=== PATIENT | male | born 1940 | race Caucasian/White ===

== ENCOUNTER → 2019-06-08 | Outpatient (CLI) | payer MEDICARE ==
[~2019-06-08] MED LIST: Aspir-Low81 MG PO; CO Q10100 MG PO; Glucosamine Ch1 EAC4 PO; LOVA40 PO; TAMS.4ER PO; VITAMIN D31000 UNIT PO
== END ==
LOC: PLD 11:19 → LAB SHORT 11:19
DX: D48.5 Neoplasm of uncertain behavior of skin (principal)
CPT/HCPCS: 88305

== ENCOUNTER → 2020-10-04 | Outpatient (CLI) | payer MEDICARE | END | disposition home or self-care (01) | LOC: LAB SHORT 07:47 → PLD 07:47 | DX: D48.5 Neoplasm of uncertain behavior of skin (principal) | CPT/HCPCS: 88305 ==

== ENCOUNTER → 2022-01-16 | Outpatient (CLI) | payer MEDICARE | END | disposition home or self-care (01) | LOC: LAB 19:03 → LAB SHORT 19:03 | DX: L97.411 Non-pressure chronic ulcer of right heel and midfoot limited to breakdown of skin (principal) | CPT/HCPCS: 87070; 87075; 87077; 87205 ==

== ENCOUNTER 2022-01-31 03:36 | Day surgery (SDC) | payer MEDICARE | END 2022-01-31 23:05 | disposition home or self-care (01) | LOC: WOUND 03:36 | DX: L89.893 Pressure ulcer of other site, stage 3 (principal); G60.9 Hereditary and idiopathic neuropathy, unspecified; I25.10 Atherosclerotic heart disease of native coronary artery without angina pectoris; Z87.891 Personal history of nicotine dependence | CPT/HCPCS: G0463 ==

== ENCOUNTER 2022-02-07 01:02 | Day surgery (SDC) | payer MEDICARE | END 2022-02-07 23:21 | disposition home or self-care (01) | LOC: WOUND 01:02 | DX: L89.893 Pressure ulcer of other site, stage 3 (principal); G60.9 Hereditary and idiopathic neuropathy, unspecified; I25.10 Atherosclerotic heart disease of native coronary artery without angina pectoris; Z85.118 Personal history of other malignant neoplasm of bronchus and lung | CPT/HCPCS: G0463 ==

== ENCOUNTER 2022-02-21 00:28 | Day surgery (SDC) | payer MEDICARE | END 2022-02-21 23:08 | disposition home or self-care (01) | LOC: WOUND 00:28 | DX: L89.893 Pressure ulcer of other site, stage 3 (principal); G60.9 Hereditary and idiopathic neuropathy, unspecified; M79.672 Pain in left foot; I25.10 Atherosclerotic heart disease of native coronary artery without angina pectoris | CPT/HCPCS: G0463 ==

== ENCOUNTER 2022-02-28 01:33 | Day surgery (SDC) | payer MEDICARE | END 2022-02-28 23:23 | disposition home or self-care (01) | LOC: WOUND 01:33 | DX: L89.893 Pressure ulcer of other site, stage 3 (principal); G60.9 Hereditary and idiopathic neuropathy, unspecified; I25.10 Atherosclerotic heart disease of native coronary artery without angina pectoris; Z85.118 Personal history of other malignant neoplasm of bronchus and lung | CPT/HCPCS: G0463 ==

== ENCOUNTER 2022-03-07 01:38 | Day surgery (SDC) | payer MEDICARE | END 2022-03-07 23:28 | disposition home or self-care (01) | LOC: WOUND 01:38 | DX: L89.893 Pressure ulcer of other site, stage 3 (principal); G60.9 Hereditary and idiopathic neuropathy, unspecified; M79.672 Pain in left foot | CPT/HCPCS: A9270; G0463 ==

== ENCOUNTER 2022-03-14 03:06 | Day surgery (SDC) | payer MEDICARE | END 2022-03-14 23:23 | disposition home or self-care (01) | LOC: WOUND 03:06 | DX: L89.893 Pressure ulcer of other site, stage 3 (principal); G60.9 Hereditary and idiopathic neuropathy, unspecified; I25.10 Atherosclerotic heart disease of native coronary artery without angina pectoris; Z85.118 Personal history of other malignant neoplasm of bronchus and lung | CPT/HCPCS: G0463 ==

== ENCOUNTER 2022-03-28 00:36 | Day surgery (SDC) | payer MEDICARE | END 2022-03-28 22:57 | disposition home or self-care (01) | LOC: WOUND 00:36 | DX: L89.893 Pressure ulcer of other site, stage 3 (principal); I25.10 Atherosclerotic heart disease of native coronary artery without angina pectoris; Z85.118 Personal history of other malignant neoplasm of bronchus and lung | CPT/HCPCS: G0463 ==

== ENCOUNTER 2022-04-11 08:11 | Day surgery (SDC) | payer MEDICARE | END 2022-04-11 22:59 | disposition home or self-care (01) | LOC: WOUND 08:11 | DX: L89.893 Pressure ulcer of other site, stage 3 (principal); G60.9 Hereditary and idiopathic neuropathy, unspecified; M79.672 Pain in left foot; I25.10 Atherosclerotic heart disease of native coronary artery without angina pectoris | CPT/HCPCS: G0463 ==

== ENCOUNTER → 2024-01-07 | Outpatient (CLI) | payer OTHER | LOC: LAB 15:00 → LAB SHORT 15:00 | DX: R30.0 Dysuria (principal) | CPT/HCPCS: 87086; 87147 ==

== ENCOUNTER 2024-03-27 17:11 | Inpatient (IN) | payer OTHER ==
[~2024-03-27] VITALS: Ht 177.8 cm; Wt 89.0 kg
[2024-04-03 13:33] VITALS: BP 94/55
== END 2024-04-03 14:50 | disposition home health service (06) | DRG 871 ==
LOC: ER 17:11 → MEDS 19:17 → PCU 03-30 23:39
PROVIDERS: ADMIT Internal Medicine
PROC: 5A0955A Assistance with Respiratory Ventilation, Greater than 96 Consecutive Hours, High Flow/Velocity Cannula (ICD-10-PCS; principal; 2024-03-27)
PROC: 3E0DX3Z Introduction of Anti-inflammatory into Mouth and Pharynx, External Approach (ICD-10-PCS; 2024-03-27)
PROC: 3E03329 Introduction of Other Anti-infective into Peripheral Vein, Percutaneous Approach (ICD-10-PCS; 2024-03-27)
DX: A41.9 Sepsis, unspecified organism (principal); J18.9 Pneumonia, unspecified organism; J96.01 Acute respiratory failure with hypoxia; U07.1 COVID-19; N40.0 Benign prostatic hyperplasia without lower urinary tract symptoms; E55.9 Vitamin D deficiency, unspecified; G62.9 Polyneuropathy, unspecified; B95.3 Streptococcus pneumoniae as the cause of diseases classified elsewhere; E78.5 Hyperlipidemia, unspecified; Z99.81 Dependence on supplemental oxygen; D64.9 Anemia, unspecified; Z85.118 Personal history of other malignant neoplasm of bronchus and lung; Z79.82 Long term (current) use of aspirin; Z79.899 Other long term (current) drug therapy; Z87.891 Personal history of nicotine dependence; B96.89 Other specified bacterial agents as the cause of diseases classified elsewhere; Z98.890 Other specified postprocedural states; Z95.5 Presence of coronary angioplasty implant and graft

== ENCOUNTER 2024-07-14 06:29 | Day surgery (SDC) | payer OTHER ==
[~2024-07-14] VITALS: Ht 177.8 cm; Wt 83.4 kg
[~2024-07-14 06:29] MED LIST changes: +ATOR10 PO; +BENZ100A PO; +Balanced Salt Epinephrine Irrigation Solution 500 mL IR SCH; +DONE5 PO; +DONEPEZIL HCL5 M2 PO; +FLUT1DIS5 INH; +GLUCOSAMINE-CH1 EA50 PO; +GUAI600T33 PO; -Glucosamine Ch1 EAC4 PO; +LATA.005SO BOTHEYES; +Lidocaine HCl/Pf 1% 5 ML VIAL XX SCH; +MELO7.5; +Moxifloxacin HCL 0.5 MG/0.1 ML 0.4MLSYR RIGHTEYE SCH; +NAPR220 PO; +NS 500 ML IV ONE; +PHENYLEPHRINE\\TROPICAMIDE\\TETRACAINE OPHTHALMIC DILATING SOLN RIGHTEYE PRN; +PREG100 PO; +Povidone-Iodine 450 DROP/30 ML Solution RIGHTEYE SCH; +TIMOLOL MALEAT1 EACH BOTHEYES; +VISBIOME 112.51 EACH PO; -VITAMIN D31000 UNIT PO; +Vitamin D1000 UNI1 PO; +WIXELA 500-501 EAC1 INH
[2024-07-14] MEDS ORDERED: MAGNESIUM (06:44)
[2024-07-14] MEDS ORDERED: DULERA 100 MCG/13 GM INH (06:45)
[2024-07-14] MEDS ORDERED: Lidocaine HCl/Pf 1% 5 ML VIAL ONE (06:48)
[2024-07-14] MEDS ORDERED: NS 500 ML IV ONE (06:56)
--- NOTE | 2024-07-14 06:56 | NUR ---
07/14/24 0656 Jessica Castro AT [address] AT [address]
[2024-07-14] MEDS ORDERED: Ipratropium/Albuterol SulF 2.5-0.5MG/3 ML Amp ONE (07:03)
[2024-07-14] MEDS ORDERED: FentaNYL Citrate 50 MCG/ML 2 ML Injection ONE (07:27)
[2024-07-14] MEDS ORDERED: Midazolam HCl 1MG / ML 2ML Vial ONE (07:27)
[2024-07-14 08:03] VITALS: BP 100/56
== END 2024-07-14 08:25 | disposition home or self-care (01) ==
LOC: ORSCSDS 06:29
PROVIDERS: Student in an Organized Health Care Education/Training Program
PROC: 08RJ3JZ Replacement of Right Lens with Synthetic Substitute, Percutaneous Approach (ICD-10-PCS; principal; 2024-07-14 07:30)
DX: H25.813 Combined forms of age-related cataract, bilateral (principal); H21.81 Floppy iris syndrome; Z86.16 Personal history of COVID-19; E78.5 Hyperlipidemia, unspecified; Z85.46 Personal history of malignant neoplasm of prostate; H40.9 Unspecified glaucoma; Z86.73 Personal history of transient ischemic attack (TIA), and cerebral infarction without residual deficits; Z79.899 Other long term (current) drug therapy
CPT/HCPCS: J2001; J2250; J3010; J7040; V2632

== ENCOUNTER 2024-07-21 06:25 | Day surgery (SDC) | payer OTHER ==
[~2024-07-21] VITALS: Ht 180.3 cm; Wt 83.0 kg
[~2024-07-21 06:25] MED LIST changes: +DULERA 100 MCG/13 GM INH; +MAGNESIUM; +Moxifloxacin HCL 0.5 MG/0.1 ML 0.4MLSYR LEFTEYE SCH; -Moxifloxacin HCL 0.5 MG/0.1 ML 0.4MLSYR RIGHTEYE SCH; +PHENYLEPHRINE\\TROPICAMIDE\\TETRACAINE OPHTHALMIC DILATING SOLN LEFTEYE PRN; -PHENYLEPHRINE\\TROPICAMIDE\\TETRACAINE OPHTHALMIC DILATING SOLN RIGHTEYE PRN; +Povidone-Iodine 450 DROP/30 ML Solution LEFTEYE SCH; -Povidone-Iodine 450 DROP/30 ML Solution RIGHTEYE SCH
[2024-07-21] MEDS ORDERED: NS 1,000 ML IV ONE ×2 (06:43)
[2024-07-21] MEDS ORDERED: Lidocaine HCl/Pf 1% 5 ML VIAL ONE (06:48)
[2024-07-21] MEDS ORDERED: FentaNYL Citrate 50 MCG/ML 2 ML Injection ONE (06:50)
[2024-07-21] MEDS ORDERED: Midazolam HCl 1MG / ML 2ML Vial ONE (06:50)
[2024-07-21 07:57] VITALS: BP 109/52
== END 2024-07-21 08:16 | disposition home or self-care (01) ==
LOC: ORSCSDS 06:25
PROVIDERS: Student in an Organized Health Care Education/Training Program
PROC: 08RK3JZ Replacement of Left Lens with Synthetic Substitute, Percutaneous Approach (ICD-10-PCS; principal; 2024-07-21 07:30)
DX: H25.812 Combined forms of age-related cataract, left eye (principal); H21.81 Floppy iris syndrome; Z96.1 Presence of intraocular lens; H40.122 Low-tension glaucoma, left eye; Z87.891 Personal history of nicotine dependence; E78.5 Hyperlipidemia, unspecified; G25.81 Restless legs syndrome; Z85.46 Personal history of malignant neoplasm of prostate; Z79.899 Other long term (current) drug therapy
CPT/HCPCS: J2001; J2250; J3010; J7040; V2632